=== PATIENT | female | born 1935 | race Caucasian/White ===

== ENCOUNTER 2021-09-30 06:47 | Day surgery (SDC) | payer OTHER ==
[~2021-09-30] VITALS: Ht 162.6 cm; Wt 68.0 kg
[2021-09-30] MEDS ORDERED: NS IRRIG SOLN 1000 ML IR ONE (06:48)
[2021-09-30] MEDS ORDERED: NS 250 ML BAG IV ONE (06:48)
[2021-09-30] MEDS ORDERED: MEPIVACAINE HCL 3% 30 MG/ML CARTRIDGE IJ ONE (06:48)
[2021-09-30] MEDS ORDERED: BENZOCAINE 20% GEL 32 GM BOTTLE MM ONE (06:48)
[2021-09-30 12:54] VITALS: BP_SYST 140
== END 2021-09-30 10:55 | disposition home or self-care (01) ==
LOC: SDS 06:47 → SMU 06:59 → SDS 10:55
PROVIDERS: ATTEND Dentist General Practice
DX: M27.2 Inflammatory conditions of jaws (principal); K05.6 Periodontal disease, unspecified; I10 Essential (primary) hypertension; E78.5 Hyperlipidemia, unspecified; I25.10 Atherosclerotic heart disease of native coronary artery without angina pectoris; E56.9 Vitamin deficiency, unspecified; Z79.899 Other long term (current) drug therapy; Z20.822 Contact with and (suspected) exposure to COVID-19
CPT/HCPCS: 21026; 21210; 21248; 36415; 41826; 70140; 87426; C1713 ×2; J7050

== ENCOUNTER 2021-12-16 07:10 | Day surgery (SDC) | payer OTHER ==
[~2021-12-16] VITALS: Ht 162.6 cm; Wt 68.0 kg
[2021-12-16] MEDS ORDERED: BENZOCAINE 20% GEL 32 GM BOTTLE MM ONE (10:00)
[2021-12-16] MEDS ORDERED: NS 250 ML BAG IV ONE (10:00)
[2021-12-16] MEDS ORDERED: NS IRRIG SOLN 1000 ML IR ONE (10:00)
[2021-12-16] MEDS ORDERED: ARTICAINE HCL/EPINEPHRINE 4%/1:200,000 BIT 1.7 ML CARTRIDGE IJ ONE (10:00)
[2021-12-16 12:06] VITALS: BP_SYST 173
== END 2021-12-16 12:25 | disposition home or self-care (01) ==
LOC: SDS 07:10 → SMU 07:18 → SDS 12:25
PROVIDERS: ATTEND Dentist General Practice
DX: M27.2 Inflammatory conditions of jaws (principal); K05.6 Periodontal disease, unspecified; I10 Essential (primary) hypertension; E78.5 Hyperlipidemia, unspecified; I25.10 Atherosclerotic heart disease of native coronary artery without angina pectoris; Z85.3 Personal history of malignant neoplasm of breast; Z86.73 Personal history of transient ischemic attack (TIA), and cerebral infarction without residual deficits; Z98.42 Cataract extraction status, left eye; Z98.41 Cataract extraction status, right eye; Z79.899 Other long term (current) drug therapy; Z20.822 Contact with and (suspected) exposure to COVID-19
CPT/HCPCS: 21026; 21210; 21248; 36415; 70140; 87426; C1713 ×2; J7050